=== PATIENT | male | born 1990 | race American Indian/Alaskan Native ===

== ENCOUNTER 2017-08-22 19:28 | Emergency (ER) | payer SELFPAY ==
[2017-08-22 21:39] LABS: Hematocrit 48.9 % (35.5-45.6); Hemoglobin 16.3 gm/dl (11.8-15.2); Mean Corpuscular HGB Conc 33 % (32-34); Mean Corpuscular Hemoglobin 32 pg (28-32); Mean Corpuscular Volume 96 fl (84-94); Platelet Count 251 K/mm3 (140-440); Red Blood Count 5.08 M/mm3 (3.65-5.03); Red Cell Distribution Width 13.1 % (13.2-15.2)
[2017-08-22 21:49] LABS: INR 0.96 (0.87-1.13)
[2017-08-22 21:50] LABS: Partial Thromboplastin Time 32.1 Sec. (24.2-36.6)
[2017-08-22 21:51] LABS: BUN/Creatinine Ratio 9; Blood Urea Nitrogen 9 mg/dL (9-20); Calcium 9.3 mg/dL (8.4-10.2); Hemolysis Index 12
--- NOTE | 2017-08-22 22:33 | Cat Scan Report ---
FINAL REPORT EXAM: CT HEAD/BRAIN WO CON HISTORY: Left side headache and left facial numbness TECHNIQUE: Noncontrast CT axial images of the brain. PRIORS: None. FINDINGS: No parenchymal mass, mass effect, hemorrhage, midline shift or hydrocephalus. No evidence of acute cortical infarct. No abnormal, extra-axial fluid or air collection. Osseous calvarium grossly intact. IMPRESSION: 1. No acute intracranial findings.
--- NOTE | 2017-08-23 02:18 | Emergency Department Report ---
HPI - General Chief Complaint: Neuro Symptoms/Deficit Time Seen by Provider: 08/23/17 02:00 - HPI HPI: [place] 24 The patient is a 27-year-old male presented with a chief complaint of left facial weakness. The patient states last night (>24 hours) he noticed weakness of the left side of space. The patient states he has difficulty closing his left eye and drinking as liquids tend to spill out of the left side of his mouth. The patient states he has decreased taste to the left side of his tongue. Patient complains of pain in the left posterior auricular region ED Past Medical Hx - Past Medical History Previous Medical History?: No Additional medical history: bronchitis - Surgical History Past Surgical History?: Yes Additional Surgical History: Dental surgery - Family History Family history: no significant - Social History Smoking Status: Current Some Day Smoker (1/4 pack per day) Substance Use Type: Alcohol (occasional) - Medications Home Medications: Home Medications Medication Instructions Recorded Confirmed Last Taken Type Azithromycin [Zithromax Z-TREV] 250 mg PO DAILY #6 tablet 07/04/13 Unknown Rx Promethazine /Codeine 5 ml PO Q6H PRN #80 ml 07/04/13 Unknown Rx [Phenergan/Codeine 6.25-10 mg/5 ml] predniSONE [Deltasone] 50 mg PO QDAY #3 tab 07/04/13 Unknown Rx Albuterol Sulfate [Ventolin HFA] 2 puff IH Q4H PRN #1 hfa.aer.ad 07/28/13 Unknown Rx Cefdinir 300 mg PO BID #20 capsule 07/28/13 Unknown Rx HYDROcodone/APAP 5-325 [[place] 1 each PO Q6HR PRN #14 tablet 07/28/13 Unknown Rx 5/325 mg] Ibuprofen [Motrin 800 MG tab] 800 mg PO Q8H #30 tablet 07/28/13 Unknown Rx Ondansetron [Zofran Odt] 4 mg PO Q6H PRN #10 tab.rapdis 07/28/13 Unknown Rx Prednisone [Prednisone 5 mg (6-Day 5 mg PO .TAPER #1 tab.ds.pk 07/28/13 Unknown Rx Pack, 21 Tabs)] Ibuprofen [Motrin] 800 mg PO Q8H PRN #30 tablet 05/21/14 Unknown Rx methOCARBAMOL [Robaxin] 500 mg PO BID #10 tab 05/21/14 Unknown Rx traMADol [Ultram] 50 mg PO Q6HR PRN #14 tablet 05/21/14 Unknown Rx Acyclovir [Zovirax] 400 mg PO 5XD #35 tablet 08/23/17 Unknown Rx Dextran 70/Hypromellose 1 each OS TID #15 ml 08/23/17 Unknown Rx [Artificial Tears] predniSONE [Deltasone] 80 mg PO QDAY #40 tab 08/23/17 Unknown Rx ED Review of Systems ROS: Stated complaint: LEFT S NUMBNESS Other details as noted in HPI Constitutional: no symptoms reported Eyes: other (difficulty closing her left eye) ENT: other (decreased gustatory sense to the left side of the tongue) Neurological: other (left facial paralysis) Physical Exam - Physical Exam Vital Signs: Vital Signs 08/22/17 21:06 Temperature 97.8 F Pulse Rate 60 Respiratory 16 Rate Blood Pressure 116/82 O2 Sat by Pulse 99 Oximetry Physical Exam: GENERAL: The patient is well-developed well-nourished male sitting on stretcher not appearing to be in acute distress. [] HEENT: Normocephalic. Atraumatic. Extraocular motions are intact. Patient has moist mucous membranes. NECK: Supple. Trachea midline CHEST/LUNGS: Clear to auscultation. There is no respiratory distress noted. HEART/CARDIOVASCULAR: Regular. There is no tachycardia. There is no gallop rub or murmur. ABDOMEN: Abdomen is soft, nontender. Patient has normal bowel sounds. There is no abdominal distention. SKIN: There is no rash. There is no edema. There is no diaphoresis. NEURO: The patient is awake, alert, and oriented. The patient is cooperative. Cranial nerves II through XII grossly intact with the exception of cranial nerve VII on the left. There is forehead sparing. Asymmetric small with paralysis noted on the left. Class B Driver equal bilaterally. There is no pronator drift. The patient has normal speech MUSCULOSKELETAL: There is no evidence of acute injury. ED Course Vital Signs 08/22/17 21:06 Temperature 97.8 F Pulse Rate 60 Respiratory 16 Rate Blood Pressure 116/82 O2 Sat by Pulse 99 Oximetry ED Medical Decision Making - Lab Data Result diagrams: 08/22/17 21:27 08/22/17 21:27 Laboratory Tests 08/22/17 08/22/17 08/22/17 21:27 21:27 21:27 WBC 5.6 RBC 5.08 H Hgb 16.3 H Hct 48.9 H MCV 96 H MCH 32 MCHC 33 RDW 13.1 L Plt Count 251 PT 13.3 INR 0.96 APTT 32.1 Sodium 140 Potassium 4.8 Chloride 101.4 Carbon Dioxide 28 Anion Gap 15 BUN 9 Creatinine 1.0 Estimated GFR > 60 BUN/Creatinine Ratio 9 Glucose 89 Calcium 9.3 - Radiology Data Radiology results: report reviewed (CT head), image reviewed (CT head) [facility] [address] [place] [address] Cat Scan Report Signed Patient: JESICA SHUKLA MR#: [id number] : [birth year] Acct:[id number] Age/Sex: 27 / M ADM Date: 08/22/17 Loc: ED Attending Dr : Ordering Physician: CANDIDO GUILLEN MD Date of Service: 08/22/17 Procedure(s): CT head /brain wo con Accession Number(s): [id number] cc: ED MD MINDY FINAL REPORT EXAM: CT HEAD/BRAIN WO CON HISTORY: Left side headache and left facial numbness TECHNIQUE : Noncontrast CT axial images of the brain. PRIORS: None. FINDINGS: No parenchymal mass, mass effect, hemorrhage, midline shift or hydrocephalus. No evidence of acute cortical infarct. No abnormal, extra-axial fluid or air collection. Osseous calvarium grossly intact. IMPRESSION: 1. No acute intracranial findings. Transcribed By: [facility] Dictated By: NEHEMIAS SEVILLA MD Electronically Authenticated By: NEHEMIAS SEVILLA MD Signed Date/Time: 2229 DD/ 29 TD/TT: 08/22/172229 - Differential Diagnosis Rai's palsy, CVA Critical care attestation.: If time is entered above; I have spent that time in minutes in the direct care of this critically ill patient, excluding procedure time. ED Disposition Clinical Impression: Rai's palsy Disposition: -01 TO HOME OR SELFCARE Is pt being admited?: No Does the pt Need Aspirin: No Condition: Stable Instructions: Rai Palsy (ED) Additional Instructions: Return to the emergency department immediately should you develop worsening symptoms, fever, inability to tolerate food or liquid or any other concerns. Prescriptions: Acyclovir [Zovirax] 400 mg PO 5XD #35 tablet Dextran 70/Hypromellose [Artificial Tears] 1 each OS TID #15 ml predniSONE [Deltasone] 80 mg PO QDAY #40 tab Referrals: STEVE AVALOS MD [Staff Physician] - 3-5 Days PRIMARY CARE, [Primary Care Provider] - 3-5 Days (Dr. Avalos is a neurologist. Please follow up with him for further evaluation) Time of Disposition: 02:25
[2017-08-23 02:36] VITALS: BP 120/80
== END 2017-08-23 02:36 | disposition home or self-care (01) ==
LOC: ED 19:28
DX: G51.0 Bell's palsy (principal); F17.200 Nicotine dependence, unspecified, uncomplicated
CPT/HCPCS: 36415; 70450; 80048; 85027; 85610; 85730; 99284

== ENCOUNTER 2019-08-26 17:13 | Emergency (ER) | payer SELFPAY ==
[2019-08-26 17:33] VITALS: BP 125/77
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
== END 2019-08-26 18:40 | disposition left against medical advice (07) ==
LOC: ED 17:13
DX: M79.672 Pain in left foot (principal); Z53.21 Procedure and treatment not carried out due to patient leaving prior to being seen by health care provider